=== PATIENT | male | born 1975 | race Caucasian/White ===

== ENCOUNTER 2021-07-24 18:11 | Emergency (ER) | payer MEDICARE, MEDICAID ==
[~2021-07-24] VITALS: Ht 167.6 cm; Wt 140.6 kg
--- NOTE | 2021-07-24 18:34 | NUR ---
VISHNU RA88 from an inpatient psych facility with c/o seizure. Pt arrival A/O X 3 and states hx of seizures. Pt placed in room 2A by EMS.
--- NOTE | 2021-07-24 19:15 | NUR ---
Received thorough report from Aime stubbs RN using SBAR method. Pt if from [facility] ([facility]) was bib RA99 after suspected SZ today. Pt does not suffer from sz, this was his very first one. Pt is stable, VSS, PE WNL besides morbid obesity. NSR on monitor. Slightly hypertensive with SBP in 150s prob his baseline. No s/sx of distress present., Pt aaox4
[2021-07-24 19:38] LABS: HEMATOCRIT 44.9 % (36.7-47.1); MEAN CORPUSCULAR HEMOGLOBIN 31.4 uug (23.8-33.4); MEAN CORPUSCULAR VOLUME 92.1 fL (73.0-96.2); PLATELET COUNT (AUTO) 162 K/uL (152-348)
[2021-07-24 19:57] LABS: ALANINE AMINOTRANSFERASE 57 U/L (16-63); ALKALINE PHOSPHATASE 74 U/L (50-136); ASPARTATE AMINOTRANSFERASE 20 U/L (15-37); BILIRUBIN,DIRECT 0.1 mg/dL (0.0-0.2); BILIRUBIN,TOTAL 0.3 mg/dL (0.2-1.0); CARBON DIOXIDE 30 mmol/L (21-32); CHLORIDE 101 mmol/L (98-107); CREATINE KINASE, TOTAL 88 U/L (39-308); CREATININE 1.2 mg/dL (0.6-1.3); GLUCOSE 88 mg/dL (74-106); POTASSIUM 4.4 mmol/L (3.5-5.1); TOTAL PROTEIN, SERUM 7.4 g/dL (6.4-8.2); UREA NITROGEN, BLOOD 17 mg/dL (7-18); VALPROIC ACID 59 ug/mL (50-100)
[2021-07-24 20:20] LABS: ETHANOL < 3 MG/DL (0-0)
[2021-07-24] MEDS ORDERED: levETIRAcetam IV 1,000 MG in IV DEXTROSE 5% 100 ML IV ONE (21:30)
[2021-07-24 21:56] LABS: *AMPHETAMINE, URINE NEGATIVE (NEGATIVE); *CANNABINOID, URINE POSITIVE (NEGATIVE); *COCCAINE, URINE NEGATIVE (NEGATIVE); *OPIATE, URINE NEGATIVE (NEGATIVE); *PHENCYCLIDINE SCREEN,URINE NEGATIVE (NEGATIVE)
[2021-07-24] MEDS ORDERED: levETIRAcetam 500 MG/5 ML VIAL IV ONE (22:24)
[2021-07-24 22:32] LABS: *BILIRUBIN,URIN NEGATIVE (NEGATIVE); *BLOOD, URINE NEGATIVE (NEGATIVE); *CLARITY,URINE CLEAR (CLEAR); *COLOR,URINE YELLOW (YELLOW); *KETONES,URINE TRACE (NEGATIVE); LEUKOCYTE ESTERASE ,URINE NEGATIVE (NEGATIVE); NITRITE, URINE NEGATIVE (NEGATIVE); UGLUCOSE NEGATIVE (NEGATIVE)
--- NOTE | 2021-07-24 22:45 | NUR ---
Pt given dinner tray and set up to eat dinner. Pt consumed 90% of tray. was place in pos of comfort awaiting EDMD to clear pt to return to his facility. All needs met, bed dropped, rails up, pt on bedside monitor is NSR no ectopy 152/75, 85bpm,18rpm, No complaints of pain, sob, n/v, or discomfort.
--- NOTE | 2021-07-24 23:39 | NUR ---
EDMD states that pt is medically cleared to return to his facility and asked me to call facility and ask if they can come pick him up, if not, then arrange transport for pt to return to [facility]. Pt is fine, VSS, NAD noted. EKG performed and is normal. Keppra 1g. just finished infusing via IV in rt ac 22g. Pt given dinner tray at approx 2210 and ate approx 90% of tray. Pt denies any pain, sob, n/v, dizziness or discomfort of any kind. no s/sxof distress present.
[2021-07-24] MEDS ORDERED: LEVE500T9 PO (23:59)
--- NOTE | 2021-07-25 00:25 | NUR ---
Pts facility called and report given to Christo. EDMD informed me that pt NEEDS to see a neurologist within the next one day. Spoke with Karen and clinical will be sent now.
--- NOTE | 2021-07-25 01:00 | NUR ---
Patient was picked up by [place] lead driver. Patient discharge back to [facility] with no distress noted.
[2021-07-25 06:29] VITALS: BP 140/88
== END 2021-07-25 01:00 | disposition home or self-care (01) ==
LOC: ER 18:13
DX: R56.9 Unspecified convulsions (principal); M54.50 Low back pain, unspecified; M79.604 Pain in right leg; Z88.0 Allergy status to penicillin
CPT/HCPCS: 36415; 70450; 80048; 80076; 80164; 80307; 80320; 81003; 82550; 85025; 93005; 96365; 99285; J1953; A4663; G0480